=== PATIENT | male | born 1940 | race Caucasian/White ===

== ENCOUNTER 2016-10-30 12:02 | Day surgery (SDC) | payer MEDICARE, OTHER ==
[2016-10-30] VITALS (7 sets, daily range): BP systolic 109–127; BP diastolic 74–88; PULSE 76–91; RESP 10–16; O2SAT 93–96
[~2016-10-30] VITALS: Ht 177.8 cm; Wt 89.2 kg
[~2016-10-30 12:02] MED LIST: ASPI-973 PO; CHOL100045 PO; CeFAZolin 2 Gm/50 mL D5W IV Premix IV ONE; FLUT16SP NS; HYDR30CR98 TOP; KTC2C15 TP; LOSA25TA21 PO; Lactated Ringer's 1,000 ML IV ONE; OMEG-38 PO; RIZA10TA26 PO; TAMS0.4C98 PO; VITA1CAP16 PO
[2016-10-30] MEDS ORDERED: MetoCLOpramide 5 mg/mL 2 mL Inj ONE (12:03)
[2016-10-30] MEDS ORDERED: Ketamine 10 mg/mL 20 mL Inj ONE (12:03)
[2016-10-30] MEDS ORDERED: Ondansetron 2 mg/mL 2 mL Inj ONE (12:03)
[2016-10-30] MEDS ORDERED: Propofol 10,000 mCg/mL 20 mL Inj ONE (12:03)
[2016-10-30] MEDS ORDERED: Dexamethasone 4 mg/mL Inj ONE (12:03)
[2016-10-30] MEDS ORDERED: CeFAZolin 2 Gm/50 mL D5W Duplex Bag IV ONE (12:27)
--- NOTE | 2016-10-30 13:54 | PCM.HPANE ---
Patient Data Surgeon Admitting Provider: Attending Provider:Valentina Blackmon MD Primary Care Physician:Saad Pozo MD Other Provider:[facility] Anesthesia Reason for Visit Right Kidney Stone Ht/WT & BMI Height (Feet): 5 Height (Inches): 10.00 Weight (Kilograms): 89.200 Body Mass Index 28.00 Allergies Uncoded Allergies: beta blockers (Adverse Reaction, Severe, intolerance, 10/26/16) Past Anesthesia History Anesthesia History: Denies:: Anesthesia Reactions, Malignant Hyperthermia Diabetes History Hx Diabetes?: No MRSA MRSA: No Medications Blood Thinner: Aspirin Hypertension Medication: Yes (LOSARTAN) Home Meds Incl Beta Elena: No Reported Medications Cholecalciferol (Vitamin D3) (Vitamin D)1,000 Unit Capsule1,000 Unit PO DAILY # 1 BOTTLE Ref 0 10/26/16 Vitamin B Complex & Vit C No.3 (B Complex with Vitamin C)1 Each Capsule1 Each PO DAILY 10/26/16 [place]-3/Dha/Epa/Fish Oil (Fish Oil 1,000 mg Softgel)1 Each Capsule1 Each PO DAILY 10/26/16 Aspirin 81 Mg Qlhrsu10 Mg PO DAILY Ref 0 10/26/16 Rizatriptan (Maxalt)10 Mg Tablet5-10 Mg PO ONCE PRN Headache 06/07/16 Fluticasone Propionate (Fluticasone Propionate Nasal)16 Gm [place].susp2 [place] NS BID #16 GM Ref 0 06/07/16 Losartan Potassium 25 Mg Nmizmy08 Mg PO DAILY 04/10/15 Discontinued Reported Medications Tamsulosin (Flomax)0.4 Mg Capsule0.4 Mg PO DAILY Ref 0 10/26/16 Ketoconazole 15 Gm Cream..g.1 Applic TP Every 1-2 weeks 06/07/16 Hydrocortisone 2.5 % Cream.appl1 Applic TOP Every 1-2 weeks 06/07/16 Cholecalciferol (Vitamin D3) (Vitamin D3)1,000 Unit Capsule1,000 Unit PO DAILY 02/11/15 Vit B Comp & C/Calcium Carb (Gnp B-Complex Tablet)1 Each Tablet1 Each PO DAILY 02/11/15 [place]-3 Fatty Acids/Fish Oil (Fish Oil 1,000 mg Capsule)1 Each Capsule1 Each PO DAILY 02/11/15 Aspirin (Aspir 81)81 Mg Tablet.dr81 Mg PO DAILY Ref 0 02/11/15 History History of ENT Problems?: Yes HEENT History: Positive for:: Sinus Problem (S/P NASAL SURGERY) Hx of Heart Problems?: Yes Cardiovascular History: Positive for:: 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) Hypertension Irregular Heartbeat (S/P CARDIAC ABLATION FOR SVT-?CODIE HATHAWAY---SYNCOPE 2014) Denies:: Heart Murmur (ECHO 06/2015, 04/2016 FOR AAA SURVEILLANCE EF 60-65%) Valvular Heart Disease Hx of Respiratory Problem?: Yes Respiratory History: Positive for:: Use of C-PAP Machine (TANNER+ NO CPAP/DOG ATE ORAL APPLIANCE) Hx Neurologic Problems?: Yes Neurological History: Positive for:: Headaches Hx of GI Problems?: Yes Other GI Pertinent History: S/P UMBILICAL HERNIA RPR Hx of Problems?: Yes Genitourinary History: Positive for:: Kidney Stones (HX PRIOR STONES S/P ESWL,URS RT KIDNEY STONE=CURRENT PROBLEM) Other Pertinent History: ED RECENTLY DIAGNOSED RT ADRENAL MASS (ADENOMATA) Male Hx: Denies:: Prostate Problems Scrotal Mass Testicular Surgery Skin History: Positive for:: History Skin Disorders? (HX MULT NEVI S/P EXC SKIN CA) Denies:: Pressure Ulcers Hx Musculoskeletal Problems?: Yes Musculoskeletal History: Positive for:: Musculoskeletal Trauma (S/P B/L ACHILKLES RPR'S X3,KNEE RPR'S X2,TOE RPR,WRIST RPR,SHOULDER RPR) Osteoarthritis Denies:: Back Injury (C/OF CHRONIC LOWER BACK PAIN) Hx of Psycho/Social Problems?: No Hx Surgeries?: Yes (UMB. HERNIA RPR,B/L ACHILLES RPR'S,NASAL RPR,KNEE RPR'S, SHOULDER RPR,WRIST ) Hx Any Other Health Problems?: Yes Other History: Positive for:: Cancer (SKIN CA) Denies:: Endocrine Disease Hospitalization Thyroid Disease History Blood Transfusions: Denies:: Blood Transfusions Hx Diabetes: No Hx Alcohol Use: YesAlcoholic Drinks Per Day: 1-3/WEEKHx Substance Use: No Smoking Status: Never Smoker Have You Smoked inLast 12 mo: No Stop/Bang Treated for Sleep Apnea?: Yes Do You Have a CPAP Machine?: No S-Snoring: Do You Snore Loudly: No T-Tired: feel tired, fatigued: Yes O-Obsered: Observed not breath: No P-Blood Pressure: treated: Yes B- Body Mass Index > 35 kg/m2: No A- Age over 50: Yes N- Neck Large Circumference: No G- Gender Male: Yes TANNER Total Score: 4 TANNER Risk Assessment: Low Risk, <3 Yes Risk Assessment Category Category 1A: Patient has history of documented sleep apnea, and HAS NOT received any narcotic, sedative or anesthesia administration during this stay. Category 1B: Patient has history of documented sleep apnea, and HAS received any narcotic , sedative or anesthesia administration during this stay Category 2: Patient has SUSPECTED Obstructive Sleep Apnea, and HAS received any narcotic , sedative or anesthesia administration during this stay. Category 3: Patient has SUSPECTED Obstructive Sleep Apnea and HAS NOT received narcotic, sedative or anesthesia administration during this stay. Category 4: Outpatient in Procedural Areas with known sleep apnea or who screen positive for High Risk via the STOP/BANG questionnaire. Exam Exam Vital Signs Vital Signs Date Time Temp Pulse Resp B/P Pulse Ox O2 Delivery O2 Flow Rate FiO2 10/30/16 12:28 36.4 91 12 109/88 95 Room Air General Appearance: Oriented X3 HEENT/AIRWAY: MP 2 Lungs: Normal Air Movement Heart: Regular Rate/Rhythm Meds/Labs/Diagnostics Admission Meds Current Medications Lactated Ringer's (Lr) 1,000 ml @ 120 mls/hr Q8H20M ONCE IV Last administered on 10/30/16t 13:20; Start 10/30/16 at 05:00; Stop 10/30/16 at 13:37; Status DC Plan Impression Patient chart reviewed, patient interviewed and anesthestic plan with risks, benefits, and alternatives discussed, and informed consent obtained. NPO Status: 1999 ASA Physical Status: ASA2 Mod Systemic Disease Anesthetic Plan: GA Bene/Risks/Altern/Consents: Yes HP Complete Prior to Induction: Yes Kyrie Matthews MD Oct 30, 2016 13:54
[2016-10-30] MEDS ORDERED: Lactated Ringer's 1,000 ML IV SCH (14:58)
[2016-10-30] MEDS ORDERED: Lactated Ringer's 500 ML IV PRN (14:58)
[2016-10-30] MEDS ORDERED: Phenylephrine 10,000 mCg/mL Inj IVPUSH PRN (15:00)
[2016-10-30] MEDS ORDERED: EPHEDrine Sulfate 50 mg/mL Inj IVPUSH PRN (15:00)
[2016-10-30] MEDS ORDERED: MetoCLOpramide 5 mg/mL 2 mL Inj IVPUSH PRN (15:00)
[2016-10-30] MEDS ORDERED: Dexamethasone 4 mg/mL Inj IVPUSH PRN (15:00)
[2016-10-30] MEDS ORDERED: fentaNYL-PF 50 mCg/mL 2 mL Inj IVPUSH PRN (15:00)
[2016-10-30] MEDS ORDERED: HYDROmorphone 1 mg/mL Inj IVPUSH PRN (15:00)
[2016-10-30] MEDS ORDERED: Ondansetron 2 mg/mL 2 mL Inj IVPUSH PRN (15:00)
[2016-10-30] MEDS ORDERED: Labetalol 5 mg/mL 4 mL Inj IV PRN (15:00)
[2016-10-30] MEDS ORDERED: HYDROcodone-APAP 5-325 mg Tablet PO PRN (15:25)
--- NOTE | 2016-10-30 16:06 | PCM.ANEP2 ---
Post Anesthesia Evaluation ASA/CMS Post Anesthesia VS in Patient's Normal Range?: Yes Resp Stable; Airway Patent?: Yes CV Function & Hydration Stable: Yes Mental Status Recovered?: Yes Pain control Satisfactory?: Yes N/V Control Satisfactory?: Yes Kyrie Matthews MD Oct 30, 2016 16:06
--- NOTE | 2016-10-30 16:06 | PCM.ANEP1 ---
Post Anesthesia Phase 1 PACU Phase 1 Assessment Vital Signs Vital Signs Date Time Temp Pulse Resp B/P Pulse Ox O2 Delivery O2 Flow Rate FiO2 10/30/16 16:04 76 16 120/74 93 Room Air 10/30/16 16:00 36 77 16 117/76 93 Room Air 10/30/16 15:53 36.8 93 10/30/16 15:52 76 10 123/77 94 Room Air 10/30/16 15:35 79 10 110/87 96 Simple Mask 6 10/30/16 15:28 36.8 81 12 127/87 96 Simple Mask 6 10/30/16 12:28 36.4 91 12 109/88 95 Room Air Anesthetic Administered: GA Level of Alertness: Awake, talking Pain: No Nausea or Vomiting: No Airway Device: Oralpharangeal Airway Oxygen Delivery: Room Air Lungs: Normal Air Movement Kyrie Matthews MD Oct 30, 2016 16:06
--- NOTE | 2016-10-30 17:13 | DRSVH ---
PROCEDURE: X-RAY RETROGRADE UROGRAPHY INDICATIONS: C-ARM ASSISTED RIGHT STENT PLACEMENT TECHNIQUE: 4 intra-operative images acquired by the Urology service. COMPARISON: [facility], CT, CT ABD ADRENAL PROTOCOL, 09/08/2016, 17:22. FINDINGS: 4 intraoperative fluoroscopy images demonstrate cannulization of the right ureter and inje ction of the right renal collection system. There is minimal pelviectasis in the right kidney. A righ t ureteral stent was placed again. IMPRESSION: Placement of right ureteral stent. Dictated by: Berto Henry M.D. on 10/30/2016 at 17:12 Transcribed by: SOUTH on 10/30/2016 at 17:12 Approved by: Berto Henry M.D. on 10/30/2016 at 19:28
--- NOTE | 2016-10-30 23:43 | OP ---
[address] [address] OPERATIVE REPORT PATIENT: RUSTAM SHEARER : 1940 MR#: [id number] ADMIT: 10/30/2016 JOB ID: [id number] DATE OF SURGERY: 10/30/2016 PREOPERATIVE DIAGNOSIS(ES): Right kidney stone. POSTOPERATIVE DIAGNOSIS(ES): Right kidney stone. PROCEDURE PERFORMED: 1. Cystoscopy with right retrograde pyelogram. 2. Right ureteroscopy with laser lithotripsy. 3. Right ureteral stent placement. SURGEON: Valentina Blackmon MD. CONTACT WORKER: None. FINDINGS: 1. Js's plaques. 2. Lower pole right kidney stone. ANESTHESIA: General. ESTIMATED BLOOD LOSS: Less than 2 mL. DRAINS: A 6 x 28 right ureteral stent. SPECIMENS: None. COMPLICATIONS: None. CONDITION: Stable. INDICATION FOR PROCEDURE: The patient is a 76-year-old gentleman with a CT scan that demonstrates multiple kidney stones. He now presents for ureteroscopy. DESCRIPTION OF PROCEDURE: After informed consent was obtained, the patient was taken to the operating room. A time-out was performed identifying correct patient, surgical site, and procedure. General anesthesia was smoothly induced. He was placed in the lithotomy position and all pressure points were identified and appropriately padded. He was given intravenous antibiotics just prior to the start of the procedure. He was placed in lithotomy position. All pressure points were identified and appropriately padded. His genitals were then prepped and draped in usual sterile fashion. A 22-Spanish rigid cystoscope was applied to patient's urethra and into the bladder. The bladder was drained. The right ureteral orifice is seen in orthotopic position. Retrograde pyelogram was performed. It appeared entirely normal. Two Sensor Tip wires were then advanced into the renal pelvis as seen under fluoroscopy. One Sensor Tip wire was used to guide a 12/14 access sheath 28 cm long over it. It was guided to the mid ureter. Flexible ureteroscopy then commenced. The ureter appeared normal. Upon entry into the kidney, retrograde pyelogram was again performed. Every calyx was examined multiple times. There were Js's plaques present. There was a stone seen in the right lower pole. The other stones seen on the CT scan, therefore, represented intraparenchymal stones. The stone was treated with a 273 micron laser FiberWire. It was broken up into such tiny fragments that they were not basketable. The ureteroscope was then brought down to the level of the access sheath and both were brought down in tandem. The ureter was normal. The remaining Sensor Tip wire was then backloaded into the cystoscope and a 6 x 28 double J ureteral stent was loaded over it and advanced in the renal pelvis as seen under fluoroscopy. The wire was then removed leaving a nice coil in the patient's bladder. The bladder was then drained. The patient was then taken to the PACU in good and stable condition. LORENA
== END 2016-10-30 23:59 | disposition home or self-care (01) ==
LOC: SAS 12:02
PROVIDERS: ATTEND Urology
DX: N20.0 Calculus of kidney (principal); I10 Essential (primary) hypertension; G47.33 Obstructive sleep apnea (adult) (pediatric); I71.4 Abdominal aortic aneurysm, without rupture; E78.2 Mixed hyperlipidemia; E66.9 Obesity, unspecified; Z68.29 Body mass index [BMI] 29.0-29.9, adult
CPT/HCPCS: 52356; 74420; C2617; J0690; J1100; J2405; J2765; J7120; Q9967